=== PATIENT | female | born 1980 | race Caucasian/White ===

== ENCOUNTER 2022-10-31 15:13 | Emergency (ER) | payer MEDICAID ==
[~2022-10-31] VITALS: Ht 160 cm; Wt 88.9 kg
[2022-10-31 16:03] VITALS: BP 137/87; PULSE 65; RESP 20; TEMP 98.2; O2SAT 65; O2SAT 95
[2022-10-31] MEDS ORDERED: IBUP-2213 PO (16:46)
[2022-10-31 17:49] VITALS: BP 133/82; PULSE 65; RESP 20; TEMP 98.2; O2SAT 98
--- NOTE | 2022-10-31 17:49 | NUR ---
Patient discharged with v/s stable. Written and verbal after care instructions FOR [facility] given and explained. Patient alert, oriented and verbalized understanding of instructions. Ambulatory with steady gait. All questions addressed prior to discharge. ID band removed. Patient advised to follow up with PMD. Rx of IBUPROFEN given. Opportunity to ask questions provided and answered.
== END 2022-10-31 17:49 | disposition home or self-care (01) ==
LOC: MED 15:13
DX: L98.9 Disorder of the skin and subcutaneous tissue, unspecified (principal); Z79.899 Other long term (current) drug therapy
CPT/HCPCS: 99282